=== PATIENT | female | born 1995 | race Caucasian/White ===

== ENCOUNTER 2018-03-27 17:11 | Emergency (ER) | payer BC, OTHER ==
[~2018-03-27] VITALS: Ht 167.6 cm; Wt 104.3 kg
[~2018-03-27 17:11] MED LIST: CPR500T PO; CYCL10TA9 PO; PHEN100T17 PO; SULF-222 PO; TRAM50TA2 PO
--- OUTSIDE RECORDS SUMMARY | 2018-03-27 17:16 | XMS REPORT ---
Author Author CAMILLA KHAN Organization [facility] IN [facility] Address [address] [place] [address] Care Team Providers Care Food Equipment Service Technician Name Role Phone CAMILLA KHAN Unavailable PROBLEMS Unknown Problems ALLERGIES No Known Allergies ENCOUNTERS Encounter Location Date Diagnosis [facility] [address] [facility] [id number] [address] Sep, Acute nasopharyngitis J00 IMMUNIZATIONS No Known Immunizations SOCIAL HISTORY Never Assessed REASON FOR VISIT cough et congestion for the past week. [email or web address] PLAN OF CARE Activity Details Follow Up prn Reason: VITAL SIGNS Height 67 in 2017-10-19 Weight 234.4 lbs 2017-10-19 Temperature 97.8 degrees Fahrenheit 2017-10-19 Heart Rate 80 bpm 2017-10-19 Respiratory Rate 20 2017-10-19 BMI 36.71 kg/m2 2017-10-19 Blood pressure systolic 124 mmHg 2017-10-19 Blood pressure diastolic 72 mmHg 2017-10-19 MEDICATIONS Medication Instructions Dosage Frequency Start Date End Date Duration Status Benadryl Allergy 25 MG Orally every 8 hrs 1 tablet as needed 8h Active RESULTS No Results PROCEDURES No Known procedures INSTRUCTIONS MEDICATIONS ADMINISTERED No Known Medications
--- OUTSIDE RECORDS SUMMARY | 2018-03-27 17:16 | XMS REPORT | Continuity of Care Document ---
Author Author [facility] Organization [facility] Address Unknown Phone Unavailable Allergies There is no data. Medications There is no data. Problems There is no data. Procedures There is no data. Results There is no data. Encounters ACCT No. Visit Date/Time Discharge Status Pt. Type Provider Facility Loc./Unit Complaint [id number] 01/23/2014 12:01:00 01/23/2014 12:53:00 DIS Emergency [id number] 06/02/2013 18:35:00 06/02/2013 21:16:00 DIS Emergency [id number] 09/20/2012 17:25:00 09/20/2012 23:59:59 [facility] Outpatient [id number] 10/19/2017 14:40:00 10/19/2017 23:59:59 [facility] Outpatient СВЕТЛАНА MALCOLM APRN WALK IN CARE
--- NOTE | 2018-03-27 18:35 | ED Lower Extremity ---
General Chief Complaint: Lower Extremity Stated Complaint: FELL DOWN STIARS, INJ RT FOOT Nursing Triage Note: Pt reports falling down 3 stairs at home. pt denies hitting head or loc. pt reports right foot pain 10/10 when walking and 5/10 when sitting. Nursing Sepsis Screen: No Definite Risk Source: patient, family (mother) Exam Limitations: no limitations History of Present Illness Date Seen by Provider: Mar 27, 2018 Time Seen by Provider: 18:34 Initial Comments Patient is a 23-year-old female who presents to the emergency room accompanied by her mother with complaints of right foot and ankle pain after falling down 3 stairs at home. She reports she just missed one of the top stairs and twisted her ankle ankle pain. She was able to ambulate to the exam room but ambulation causing increasing pain. She denies any other injuries from the fall such as head, neck pain, loss of consciousness. Onset: just prior to arrival Pain/Injury Location: right foot, right ankle Method of Injury: fell, twisted Modifying Factors: Worse With Movement Allergies and Home Medications Allergies Coded Allergies: latex (Verified Adverse Reaction, ITCH , 06/02/13) Home Medications Trimethoprim/Sulfamethoxazole 1 Ea Tablet, 1 EA PO BID Prescribed by: CHARLENE SYED on 01/23/14 1241 Past Mggrddh-Pclnkx-Kilone Hx Patient Social History Alcohol Use: Denies Use Recreational Drug Use: No Smoking Status: Never a Smoker Recent Foreign Travel: No Contact w/Someone Who Travel: No Recent Infectious Disease Expo: No Recent Hopitalizations: No Seasonal Allergies Seasonal Allergies: No Past Medical History Surgeries: Yes Tonsillectomy Respiratory: No Cardiac: No Neurological: No Genitourinary: No Gastrointestinal: No Musculoskeletal: No Endocrine: No HEENT: No Cancer: No Psychosocial: No Integumentary: No Blood Disorders: Yes (ANEMIA) Physical Exam Vital Signs Vital Signs - First Documented 03/27/18 17:45 Temp 98.5 Pulse 107 Resp 14 B/P (MAP) 119/74 (89) Pulse Ox 97 Capillary Refill : Less Than 3 Seconds Height, Weight, BMI Height: 5'6.00" Weight: 230lbs. oz. 104.589582cw; BMI Method:Stated Progress/Results/Core Measures Results/Orders My Orders Orders - LA GAXIOLA Foot, Right, 3 View (03/27/18 18:22) Ankle, Right, 3 Views (03/27/18 18:26) Vital Signs/I&O 03/27/18 17:45 Temp 98.5 Pulse 107 Resp 14 B/P (MAP) 119/74 (89) Pulse Ox 97 Blood Pressure Mean: 89 Departure Impression Primary Impression: Ankle sprain Disposition: 01 HOME, SELF-CARE Condition: Stable/Unchanged Departure-Patient Inst. Decision time for Depature: 19:19 Referrals: FIONA LEIVA MD (PCP/Family) Primary Care Physician Patient Instructions: Ankle Sprain (DC) Add. Discharge Instructions: Wear the air stirrup and Jarvis bandage as needed for comfort. Ice to the sore areas at 20 minute intervals. Tylenol and ibuprofen as needed for pain relief. Follow-up with her primary care provider as needed. Return back to the emergency room for any worsening symptoms or concerns as needed. All discharge instructions reviewed with patient and/or family. Voiced understanding. LA GAXIOLA Mar 27, 2018 18:35
--- NOTE | 2018-03-27 19:08 | Diagnostic Imaging Report ---
EXAM: ANKLE, RIGHT, 3 VIEWS INDICATION: Fall. Right foot and ankle pain. COMPARISON: None. FINDINGS: No fracture or malalignment. The ankle mortise and talar dome appear intact on these nonweightbearing views. Soft tissue shadows are unremarkable. IMPRESSION: Negative right ankle radiographs. Dictated by: Dictated on workstation # [id number]
--- NOTE | 2018-03-27 19:09 | Diagnostic Imaging Report ---
EXAM: FOOT, RIGHT, 3 VIEW INDICATION: Fall. Right foot and ankle pain. COMPARISON: None. FINDINGS: No fracture or malalignment. No suspicious osteoblastic or lytic lesions. Soft tissue shadows are unremarkable. IMPRESSION: Negative right foot radiographs. Dictated by: Dictated on workstation # [id number]
[2018-03-27 19:50] VITALS: BP 119/74
== END 2018-03-27 19:50 | disposition home or self-care (01) ==
LOC: EDUNIT# 17:11 → ER 17:12
DX: S93.401A Sprain of unspecified ligament of right ankle, initial encounter (principal); Z90.89 Acquired absence of other organs; Z91.040 Latex allergy status; W10.8XXA Fall (on) (from) other stairs and steps, initial encounter; Y92.009 Unspecified place in unspecified non-institutional (private) residence as the place of occurrence of the external cause
CPT/HCPCS: 73610; 73630

== ENCOUNTER 2018-10-24 05:46 | Outpatient (CLI) | payer BC ==
[~2018-10-24] VITALS: Ht 167.6 cm; Wt 104.3 kg
[2018-10-24] MEDS ORDERED: FERR-84 PO (15:56)
[2018-10-24] MEDS ORDERED: CHOL2000 PO (15:56)
== END 2018-10-24 16:12 | disposition home or self-care (01) ==
LOC: PREOP 05:46
PROVIDERS: ATTEND Obstetrics & Gynecology
DX: Z01.818 Encounter for other preprocedural examination (principal)

== ENCOUNTER 2018-10-31 08:44 | Day surgery (SDC) | payer BC ==
[~2018-10-31] VITALS: Ht 167.6 cm; Wt 108.9 kg
[2018-10-31] VITALS (10 sets, daily range): BP systolic 93–103; BP diastolic 53–67
[~2018-10-31 08:44] MED LIST changes: +CHOL2000 PO; +FERR-84 PO
--- OUTSIDE RECORDS SUMMARY | 2018-10-31 08:48 | XMS REPORT | Continuity of Care Document ---
Author Organization Unknown Address Unknown Phone Unavailable Allergies Active Description Code Type Severity Reaction Onset Reported/Identified Relationship to Patient Clinical Status Yes latex [id number] Drug Allergy Unknown ITCH 06/02/2013 Yes No Known Drug Allergies [id number] Drug Allergy Unknown N/A 10/24/2018 Medications There is no data. 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[employer] Ot 682.3 CELLULITIS OF ARM 03/27/2018 LA GAXIOLA Ot M25.571 PAIN IN RIGHT ANKLE AND JOINTS OF RIGHT 03/27/2018 LA GAXIOLA Ot S93.401A SPRAIN OF UNSPECIFIED LIGAMENT OF RIGHT 03/27/2018 LA GAXIOLA Ot W10.8XXA FALL (ON) (FROM) OTHER STAIRS AND STEPS, 03/27/2018 LA GAXIOLA Ot Y92.[address] [facility] [address] IN [facility] NON-INSTITUT (PRIVATE 03/27/2018 LA GAXIOLA Ot Z90.89 ACQUIRED ABSENCE OF OTHER ORGANS 03/27/2018 LA GAXIOLA Ot Z91.040 LATEX ALLERGY STATUS 03/29/2018 LA GAXIOLA Ot M25.571 PAIN IN RIGHT ANKLE AND JOINTS OF RIGHT 03/29/2018 LA GAXIOLA Ot S93.401A SPRAIN OF UNSPECIFIED LIGAMENT OF RIGHT 03/29/2018 LA GAXIOLA Ot W10.8XXA FALL (ON) (FROM) OTHER STAIRS AND STEPS, 03/29/2018 LA GAXIOLA Ot Y92.[address] IN [facility] NON-INSTITUT (PRIVATE 03/29/2018 LA GAXIOLA Ot Z90.89 ACQUIRED ABSENCE OF OTHER ORGANS 03/29/2018 LA GAXIOLA Ot Z91.040 LATEX ALLERGY STATUS 10/24/2018 AMY MASTERSON DO Ot Z01.818 ENCOUNTER FOR OTHER PREPROCEDURAL EXAMIN 10/25/2018 AMY MASTERSON DO Ot Z01.818 ENCOUNTER FOR OTHER PREPROCEDURAL EXAMIN Procedures There is no data. Results Test Result Range SUREPATH PAP RFX HPV mRNA E6/E7 - 06/21/18 00:00 CLINICAL INFORMATION: CERVIC NRG LMP: 05/31/2018 NRG PREV. PAP: NRG PREV. BX: NRG SOURCE: NRG STATEMENT OF ADEQUACY: NRG INTERPRETATION/RESULT: NRG COMPRESS ENGINEER: SADIA PATHOLOGIST: SADIA COMMENT NRG PATHOLOGY REPORT (TISSUE PAHOLOGY) - 06/21/18 12:07 CLINICAL INFORMATION NRG PATHOLOGIST NRG Encounters ACCT No. Visit Date/Time Discharge Status Pt. Type Provider Facility Loc./Unit Complaint [id number] 10/24/2018 05:46:00 10/24/2018 16:12:00 DIS Outpatient AMY MASTERSON DO [facility] PREOP DYSFUNCTIONAL UTERINE BLEEDING [id number] 03/27/2018 17:12:00 03/27/2018 19:50:00 DIS Emergency LA GAXIOLA [facility] ER FELL DOWN STAIRS, INJ RT FOOT [id number] 01/23/2014 12:01:00 01/23/2014 12:53:00 DIS Emergency CHARLENE SYED APRN [facility] ER ABSCESS LEFT UPPER ARM [id number] 06/02/2013 18:35:00 06/02/2013 21:16:00 DIS Emergency AKASH BARRAGAN [facility] ER LOWER BACK PAIN AND BODY ACHES [id number] 09/20/2012 17:25:00 09/20/2012 23:59:59 [facility] Outpatient [id number] 10/31/2018 10:00:00 PEN Preadmit AMY MASTERSON DO [facility] DYSFUNCTIONAL UTERINE BLEEDING [id number] 06/21/2018 09:40:00 06/21/2018 23:59:59 [facility] Outpatient СВЕТЛАНА MALCOLM APRN [facility] [id number] 06/21/2018 09:40:00 Document Registration
[2018-10-31] MEDS ORDERED: LACTATED RINGERS 1,000 ML IV PRN (09:04)
[2018-10-31 09:19] LABS: BASOPHILS % (AUTO) 0 % (0-10); EOSINOPHILS # (AUTO) 0.2 10^3/uL (0.0-0.3); EOSINOPHILS % (AUTO) 4 % (0-10); HEMATOCRIT 27 % (35-52); HEMOGLOBIN 7.9 G/DL (11.5-16.0); LYMPHOCYTES # (AUTO) 2.3 X 10^3 (1.0-4.0); LYMPHOCYTES % (AUTO) 37 % (12-44); MEAN CORPUSCULAR HEMOGLOBIN 23 PG (25-34); MEAN CORPUSCULAR HGB CONC 30 G/DL (32-36); MEAN CORPUSCULAR VOLUME 76 FL (80-99); MEAN PLATELET VOLUME 9.4 FL (7.4-10.4); MONOCYTES # (AUTO) 0.6 X 10^3 (0.0-1.0); MONOCYTES % (AUTO) 9 % (0-12); NEUTROPHILS # (AUTO) 3.1 X 10^3 (1.8-7.8); NEUTROPHILS % (AUTO) 50 % (42-75); PLATELET COUNT 518 10^3/uL (130-400); RED CELL DISTRIBUTION WIDTH 15.6 % (10.0-14.5); WHITE BLOOD COUNT 6.2 10^3/uL (4.3-11.0)
[2018-10-31] MEDS ORDERED: MIDAZOLAM 2 MG/2 ML (VERSED) VIAL ONE (09:45)
[2018-10-31] MEDS ORDERED: fentaNYL INJECTION 100 MCG/2 ML AMP ONE (09:46)
[2018-10-31] MEDS ORDERED: ONDANSETRON 4 MG/2 ML (SDV) Z0FRAN ONE (09:51)
[2018-10-31] MEDS ORDERED: proPOfol 200 MG/20 ML (DIPRIVAN) VIAL IV ONE (09:51)
[2018-10-31] MEDS ORDERED: SEVOFLURANE (ULTANE) 15 ML INHAL SOLN ONE ×2 (09:51→10:07)
[2018-10-31] MEDS ORDERED: KETOROLAC 30 MG/ML VIAL ONE ×2 (09:51→10:10)
[2018-10-31] MEDS ORDERED: LIDOCAINE PF 2% 5 ML (XYLOCAINE) VIAL ONE (09:51)
[2018-10-31] MEDS ORDERED: BUPIVACAINE 0.25% 30 ML (SENSORCAINE) VIAL ONE (09:54)
--- NOTE | 2018-10-31 09:58 | Progress Note-Pre Operative ---
Pre-Operative Progress Note H&P Reviewed The H&P was reviewed, patient examined and no changes noted. Date Seen by Provider: Oct 31, 2018 Time Seen by Provider: 09:57 Date H&P Reviewed: Oct 31, 2018 Time H&P Reviewed: 09:57 Pre-Operative Diagnosis: DUB, BMI 38 AMY MASTERSON DO Oct 31, 2018 09:58
[2018-10-31] MEDS ORDERED: DEXAMETHASONE 10 MG/ML (DECADRON) 1 ML VIAL ONE (10:13)
[2018-10-31] MEDS ORDERED: D5 LR IV SOLUTION 1,000 ML IV SCH (10:29)
[2018-10-31] MEDS ORDERED: morphine INJ 10 MG/ML 1ML (SYR OR VIAL) IVP ONE (10:30)
[2018-10-31] MEDS ORDERED: HYDROmorphone 2 MG/ML VIAL (DILAUDID) IV ONE (10:30)
[2018-10-31] MEDS ORDERED: ONDANSETRON 4 MG/2 ML (SDV) Z0FRAN IVP PRN ×2 (10:30)
[2018-10-31] MEDS ORDERED: KETOROLAC 30 MG/ML VIAL IVP ONE (10:30)
--- NOTE | 2018-10-31 10:32 | Discharge Inst-Women's Service ---
Discharge Inst-Women's Serv Depart Medication/Instructions New, Converted or Re-Newed RX: RX on Chart Problems Reviewed?: Yes Consults/Follow Up Additional Follow Up: Yes Orders/Referrals Dr. Masterson in 3-4 weeks Activity Activity: Activity as Tolerated Driving Instructions: No Driving for 1 Week NO SMOKING: NO SMOKING Nothing Inside Vagina: No [place], No Tampons Diet Discharge Diet: No Restrictions Symptoms to Report to : Bleeding Excessive, Pain Increased, Fever Over 101 Degrees F, Vaginal Bleeding Increase, Questions/Concerns For Any Problems or Questions: Contact Your Physician AMY MASTERSON DO Oct 31, 2018 10:32
[2018-10-31] MEDS ORDERED: HYDROcodone/APAP 5 MG/325 MG (LORTAB) TAB PO PRN (10:45)
[2018-10-31] MEDS ORDERED: BUPIVACAINE 0.25% 30 ML (SENSORCAINE) VIAL INJ ONE (11:00)
--- NOTE | 2018-10-31 13:02 | Anesthesia-General Post-Op ---
General Patient Condition Mental Status/LOC: Same as Preop Cardiovascular: Satisfactory Nausea/Vomiting: Absent Respiratory: Satisfactory Pain: Controlled Complications: Absent Post Op Complications Complications None Follow Up Care/Instructions Patient Instructions None needed. Anesthesia/Patient Condition Patient Condition Patient is doing well, no complaints, stable vital signs, no apparent adverse anesthesia problems. No complications reported per nursing. JAIDA TEJEDA CRNA Oct 31, 2018 13:01
--- NOTE | 2018-10-31 16:06 | OPERATIVE REPORT ---
DATE OF SERVICE: PREOPERATIVE DIAGNOSIS: A 23-year-old female with dysfunctional uterine bleeding. POSTOPERATIVE DIAGNOSIS: A 23-year-old female with dysfunctional uterine bleeding. PROCEDURE: D and C with placement of Liletta IUD. SURGEON: Amy Masterson DO. ANESTHESIA: General endotracheal. ESTIMATED BLOOD LOSS: Minimal. URINE OUTPUT: 30 mL. FLUIDS: 700 mL of lactated Ringer's solution. FINDINGS: A copious amount of thickened endometrial tissue consistent with ultrasound evaluation of thickened endometrium. Grossly normal-appearing external female genitalia, vagina and cervix. SPECIMENS SENT: Endometrial curettings. INDICATIONS FOR PROCEDURE: This 23-year-old female is the patient I have seen in the office for heavy abnormal bleeding causing anemia chronically. Her last hemoglobin was found to be less than 10. I discussed with the patient more conservative measures, which she had tried in the past; however, she wished to proceed with a more aggressive measure of a D and C due to thickened lining found on ultrasound. We also discussed preventing the lining from coming back in the thickened nature using a progestin IUD. Risks of the procedure were discussed with the patient in detail. After all of her questions were answered in the preoperative area, consent was obtained in the preoperative area and the patient was taken to the operating room. OPERATIVE REPORT IN DETAIL: Once in the operating room, anesthesia was found to be adequate. She was placed in a dorsal lithotomy position, prepped and draped in a normal sterile fashion. Timeout was performed. A weighted speculum was inserted in the patient's vagina. Right angle retractor was used to visualize the cervix, which was grasped at 12 o'clock position using a long Allis clamp. I then performed a paracervical block at 3 and 9 o'clock positions on the cervix using 0.25% Marcaine with 5 mL were injected at each site. Care was taken to aspirate before injecting. I then gently sound the uterine cavity and depth was found to be 8 cm. It did not necessitate dilation of the cervix and then I performed a gentle curetting using a medium sized endometrial curette and collected a copious amount of endometrial tissue. I sent it for pathology labeled as endometrial curettings. After this was done, I placed a Liletta IUD in the appropriate fashion sounding the cavity depth of 8 cm retracting the sheath, deploying the arm and applying it to the uterine fundus after which the sheath was retracted and the strings were trimmed approximately 3 cm outside of the cervix. After this was done, there was no active bleeding noted from any of my dissection planes. The patient tolerated the procedure well and sent to recovery area in stable condition. All the instruments were removed from the patient's vagina. Lap and sponge counts were correct at the end of the procedure. Instrument counts were correct as well. Job ID: [id number] DocumentID: [id number] Dictated Date: 10/31/2018 10:43:29 Secondary Connector Armature Date: 10/31/2018 16:05:35 Dictated By: AMY MASTERSON DO
== END 2018-10-31 13:20 | disposition home or self-care (01) ==
LOC: SDC 08:44
PROVIDERS: ATTEND Obstetrics & Gynecology
DX: N85.00 Endometrial hyperplasia, unspecified (principal); N93.9 Abnormal uterine and vaginal bleeding, unspecified; N85.5 Inversion of uterus; D64.9 Anemia, unspecified; E66.01 Morbid (severe) obesity due to excess calories; Z79.899 Other long term (current) drug therapy; Z68.37 Body mass index [BMI] 37.0-37.9, adult
CPT/HCPCS: 36415; 84703; 85025; 86850; 86900; 86901; 87081; 88305

== ENCOUNTER → 2019-11-24 | Outpatient (CLI) | payer BC ==
--- NOTE | 2019-11-24 13:27 | Diagnostic Imaging Report ---
INDICATION: Assessment during normal . TECHNIQUE: Multiple real-time grayscale images were obtained over the gravid uterus. COMPARISON: None. FINDINGS: A single viable intrauterine is currently in cephalic presentation. Normal amount of amniotic fluid. Placenta is anterior and without evidence of previa. Visualized anatomical structures including kidneys, bladder, stomach, intracranial structures, four-chamber heart, three-vessel cord, and spine appear unremarkable. The cord insertion site is not able to be well defined at this time. Cervical length is approximately 4 cm. Maternal adnexa are not visualized. Biometrical measurements are as follows: Biparietal 4.78 cm, age 20 weeks 4 days. Head circumference 17.44 cm, age 20 weeks 0 days. Abdominal circumference 14.10 cm, age 19 weeks 4 days. Femur length 3.14 cm, age 19 weeks 6 days. Sonographic estimate age: 20 weeks 0 days. Sonographic estimated date of delivery: 04/12/2020. Estimated Weight: 306 gm (+/- 45 gm). LMP percentile: 43%. heart rate: 134 beats per minute. number: 1 of 1. IMPRESSION: 1. Single viable intrauterine currently in a cephalic presentation. Sonographic estimated age 20 weeks 0 days for estimated date of delivery April 12, 2020. No abnormalities demonstrated at this time; however, the cord insert site is not able to be well identified on current study. Dictated by: Dictated on workstation # [id number]
== END ==
LOC: RAD 10:00
PROVIDERS: ATTEND Obstetrics & Gynecology
DX: Z34.92 Encounter for supervision of normal pregnancy, unspecified, second trimester (principal); Z3A.20 20 weeks gestation of pregnancy
CPT/HCPCS: 76805

== ENCOUNTER 2020-04-03 05:18 | Inpatient (IN) | payer BC, MEDICAID ==
[2020-04-03] VITALS (56 sets, daily range): BP systolic 91–175; BP diastolic 45–105
[~2020-04-03] VITALS: Ht 167.7 cm; Wt 106.8 kg
--- NOTE | 2020-04-03 05:20 | NUR ---
ATA MARADIAGA presented to unit via from ED, accompanied by debra , with c/o CONTRACTIONS. ATA MARADIAGA weighed, gowned, voided, and to bed. EFHM and TOCO applied, VS taken. ATA MARADIAGA oriented to bed controls, call light, TV, heat, and A/C controls.
--- NOTE | 2020-04-03 05:30 | NUR ---
SVE 5cm.
[2020-04-03 06:05] LABS: BILIRUBIN,URINE NEGATIVE (NEGATIVE); CLARITY,URINE SL CLOUDY; COLOR,URINE YELLOW; GLUCOSE, URINE (UA) NEGATIVE (NEGATIVE); KETONES,URINE NEGATIVE (NEGATIVE); LEUKOCYTE ESTERASE ,URINE 1+ (NEGATIVE); NITRITE,URINE NEGATIVE (NEGATIVE); PROTEIN,URINE NEGATIVE (NEGATIVE)
[2020-04-03 06:15] LABS: BACTERIA,URINE TRACE /HPF
[2020-04-03] MEDS ORDERED: D5 LR IV SOLUTION 1,000 ML IV ONE (06:35)
[2020-04-03] MEDS ORDERED: MINERAL OIL CONCENTRATE 99.9% 15 ML UDC TOP PRN (06:45)
[2020-04-03] MEDS: D5 LR IV SOLUTION 1,000 ML IV SCH ×2 (06:53→14:48)
[2020-04-03 07:28] LABS: BASOPHILS % (AUTO) 0 % (0-10); EOSINOPHILS # (AUTO) 0.1 10^3/uL (0.0-0.3); EOSINOPHILS % (AUTO) 1 % (0-10); HEMATOCRIT 31 % (35-52); HEMOGLOBIN 10.1 g/dL (11.5-16.0); LYMPHOCYTES % (AUTO) 20 % (12-44); MEAN CORPUSCULAR HEMOGLOBIN 27 pg (25-34); MEAN CORPUSCULAR HGB CONC 33 g/dL (32-36); MEAN CORPUSCULAR VOLUME 83 fL (80-99); MEAN PLATELET VOLUME 9.8 fL (9.0-12.2); MONOCYTES # (AUTO) 0.7 10^3/uL (0.0-1.0); MONOCYTES % (AUTO) 7 % (0-12); NEUTROPHILS # (AUTO) 7.3 10^3/uL (1.8-7.8); NEUTROPHILS % (AUTO) 73 % (42-75); PLATELET COUNT 353 10^3/uL (130-400); WHITE BLOOD COUNT 10.1 10^3/uL (4.3-11.0)
[2020-04-03] MEDS ORDERED: fentaNYL 2 mcg/ml BUPIVA 0.125 100 ML ONE (08:27)
--- NOTE | 2020-04-03 08:28 | NUR ---
Marlene Duarte CREDIT PRODUCT ANALYST notified of epidural request
[2020-04-03] MEDS ORDERED: fentaNYL INJECTION 100 MCG/2 ML AMP ONE (08:36)
[2020-04-03] MEDS ORDERED: BUPIVACAINE 0.25% 30 ML (SENSORCAINE) VIAL ONE (08:36)
[2020-04-03] MEDS ORDERED: OXYTOCIN PRE-MIX DRIP 500 ML IV SCH ×2 (08:45→15:30)
[2020-04-03] MEDS ORDERED: CATHETER FLUSH 10 ML SYR IV PRN (08:45)
[2020-04-03] MEDS ORDERED: LACTATED RINGERS 1,000 ML IV ONE (08:45)
[2020-04-03] MEDS ORDERED: fentaNYL 2 mcg/ml BUPIVA 0.125 100 ML IV SCH (08:45)
[2020-04-03] MEDS ORDERED: NALOXONE 0.4 MG/ML 1 ML (NARCAN) VIAL IV PRN (08:45)
[2020-04-03] MEDS ORDERED: LIDOCAINE/EPI 2% 1:200,00 (XYLOCAINE) 10 ML VIAL ONE ×2 (15:11)
--- NOTE | 2020-04-03 15:20 | History & Physical-OB ---
OB - Chief Complaint & HPI Date/Time Date of Admission: Date of Admission: Apr 03, 2020 at 06:35 Date seen by a Provider: Apr 03, 2020 Time Seen by a Provider: 08:30 Chief Complaint/History OB-Reason for Admission/Chief: Onset of Labor Hx : 2 Hx Para: 1 Expected Date of Delivery: Apr 14, 2020 Gestational Age in Weeks: 38 Gestational Age in Days: 3 Admission Nurse Assessment Rev: Yes Allergies and Home Medications Allergies Coded Allergies: No Known Drug Allergies (Unverified , 10/24/18) Home Medications Cholecalciferol (Vitamin D3) 2,000 Unit Capsule, 2,000 UNIT PO DAILY, (Reported) Ferrous Sulfate 325 Mg Tablet, 325 MG PO DAILY, (Reported) Patient Home Medication List Home Medication List Reviewed: Yes OB - History Hx of Present Care: Yes Ultrasounds: Normal mid trimester US Obstetrical Complications: None Medical Complications: None Obstetrical History Hx : 2 Hx Para: 1 Delivery History Hx Blood Disorders: Yes (ANEMIA) Adverse Rxn to Tranfusion: No Patient Past Medical History n/a Social History/Family History HIV/AIDS: No Recent Infectious Disease Expo: No Sexually Transmitted Disease: No Alcohol Use: Denies Use Recreational Drug Use: No 2nd Hand Smoke Exposure: No Immunizations Hepatitis A: Yes Hepatitis B: Yes Date of Influenza Vaccine: Feb 04, 2021 OB - Admission Exam Physical Exam Vitals: Vital Signs 04/03/20 04/03/20 04/03/20 10:20 13:35 14:05 Temp 36.7 Pulse 75 Resp 18 B/P (MAP) 117/77 (90) Pulse Ox 100 O2 Delivery Room Air HEENT: NCAT Heart: Rhythm Normal Lungs: Clear Abdomen: Gravid Extremities: Normal Reflexes: Normal Cervical Dilatation: 4cm Effacement: 75% Station: -1 Membranes: Intact Heart Rate: 130's Accelerations: Accelerations Present Decelerations: No Decelerations Short Term Variability: Present Oil Treater Variability: Average (6-25) Contractions on Admission: < 5 Minutes Apart Intensity: Firm Labs Laboratory Tests Test 04/03/20 05:20 04/03/20 07:12 04/03/20 07:35 Range/Units Urine Color YELLOW Urine Clarity SL CLOUDY Urine pH 7.0 5-9 Urine Specific [place] 1.010 L 1.016-1.022 Urine Protein NEGATIVE NEGATIVE Urine Glucose (UA) NEGATIVE NEGATIVE Urine Ketones NEGATIVE NEGATIVE Urine Nitrite NEGATIVE NEGATIVE Urine Bilirubin NEGATIVE NEGATIVE Urine Urobilinogen 0.2 < = 1.0 MG/DL Urine Leukocyte Esterase 1+ H NEGATIVE Urine RBC (Auto) NEGATIVE NEGATIVE Urine RBC NONE /HPF Urine WBC 5-10 H /HPF Urine Squamous Epithelial Cells 2-5 /HPF Urine Crystals NONE /LPF Urine Bacteria TRACE /HPF Urine Casts NONE /LPF Urine Mucus NEGATIVE /LPF Urine Culture Indicated NO White Blood Count 10.1 4.3-11.0 10^3/uL Red Blood Count 3.76 L 3.80-5.11 10^6/uL Hemoglobin 10.1 L 11.5-16.0 g/dL Hematocrit 31 L 35-52 % Mean Corpuscular Volume 83 80-99 fL Mean Corpuscular Hemoglobin 27 25-34 pg Mean Corpuscular Hemoglobin Concent 33 32-36 g/dL Red Cell Distribution Width 13.7 10.0-14.5 % Platelet Count 353 130-400 10^3/uL Mean Platelet Volume 9.8 9.0-12.2 fL Immature Granulocyte % (Auto) 0 % Neutrophils (%) (Auto) 73 42-75 % Lymphocytes (%) (Auto) 20 12-44 % Monocytes (%) (Auto) 7 0-12 % Eosinophils (%) (Auto) 1 0-10 % Basophils (%) (Auto) 0 0-10 % Neutrophils # (Auto) 7.3 1.8-7.8 10^3/uL Lymphocytes # (Auto) 2.0 1.0-4.0 10^3/uL Monocytes # (Auto) 0.7 0.0-1.0 10^3/uL Eosinophils # (Auto) 0.1 0.0-0.3 10^3/uL Basophils # (Auto) 0.0 0.0-0.1 10^3/uL Immature Granulocyte # (Auto) 0.0 0.0-0.1 10^3/uL OB - Assessment/Plan/Diagnosis Assessment Assessment: active labor Admission Dx 25 yo @ 38 weeks Active labor GBS neg Admission Status: Inpatient Order (span 2 midnights) Reason for Inpatient Admission: Active labor at term Plan Other Plan AROM, and Pitocin if labor pattern becomes dysfunction. Patient to have epidural at request. AMY MASTERSON DO Apr 03, 2020 15:20
--- NOTE | 2020-04-03 15:22 | Discharge Inst-Women's Service ---
Discharge Inst-Women's Serv Depart Medication/Instructions New, Converted or Re-Newed RX: RX on Chart Final Diagnosis PPD 1 NVD Problems Reviewed?: Yes Consults/Follow Up Additional Follow Up: Yes Orders/Referrals Dr. Masterson in 6 weeks Activity Activity: Activity as Tolerated Driving Instructions: No Driving for 1 Week NO SMOKING: NO SMOKING Nothing Inside Vagina: No Douching, No [place], No Tampons Diet Discharge Diet: No Restrictions Symptoms to Report to : Bleeding Excessive, Pain Increased, Fever Over 101 Degrees F, Vaginal Bleeding Increase, Questions/Concerns For Any Problems or Questions: Contact Your Physician AMY MASTERSON DO Apr 03, 2020 15:22
[2020-04-03] MEDS ORDERED: BENZ78AE5 TP (15:23)
[2020-04-03] MEDS ORDERED: FERR325T18 PO (15:23)
[2020-04-03] MEDS ORDERED: DCS100C PO (15:23)
[2020-04-03] MEDS ORDERED: IBUP-844 PO (15:23)
[2020-04-03] MEDS ORDERED: ACHD5005 PO (15:23)
[2020-04-03] MEDS ORDERED: WITCH HAZEL(TUCKS) 40 EA JAR TOP PRN (15:30)
[2020-04-03] MEDS ORDERED: DIBUCAINE (NUPERCAINAL) 1% OINT 30 GM TOP PRN (15:30)
[2020-04-03] MEDS ORDERED: TETANUS,DIPTH,PERTUSS P/F (BOOSTRIX) 0.5 ML VIAL IM ONE (15:30)
[2020-04-03] MEDS ORDERED: MEASLES,MUMPS,RUBELLA 1 EA INJ SQ ONE (15:30)
[2020-04-03] MEDS ORDERED: BENZOCAINE/MENTHOL (DERMOPLAST) 60 ML CAN TP PRN (15:30)
[2020-04-03] MEDS ORDERED: HYDROcodone/APAP 5 MG/325 MG (LORTAB) TAB PO PRN (15:30)
--- NOTE | 2020-04-03 16:09 | OB Labor & Delivery Record ---
L&D History Date of Service Date of Service: Apr 03, 2020 History Expected Date of Delivery: Apr 14, 2020 Gestational Age in Weeks: 38 Hx : 2 Hx Para: 1 Complications Events: Routine care Operative Indications (Cesarea: N/A-Vaginal Delivery Intrapartal Events: None L&D Stage1 Stage One Onset of Labor - Date: Apr 03, 2020 Monitors and Tracing Monitor Mode: External Heart Rate: 135 Monitor Accelerations: Uniform Monitor Decelerations: None Station: -1 Dowel Sander Operator Variability: Average (6-10) Short Term Variability: Present Presentation: Vertex Vital Signs VS - Last 72 Hours, by Label 04/03/20 04/03/20 04/03/20 04/03/20 05:34 05:45 05:46 06:20 Temp 36.6 36.6 36.6 Pulse 77 77 77 71 Resp 18 18 18 18 B/P (MAP) 108/65 (79) 106/65 (79) Pulse Ox 98 98 98 98 O2 Delivery Room Air Room Air Room Air Room Air 04/03/20 04/03/20 04/03/20 04/03/20 07:55 08:50 08:53 08:57 Temp 36.8 Pulse 70 96 79 88 Resp 18 18 18 18 B/P (MAP) 109/64 (79) 113/63 (80) 110/64 (79) 105/61 (76) Pulse Ox 100 100 100 O2 Delivery Room Air Room Air Room Air Room Air 04/03/20 04/03/20 04/03/20 04/03/20 09:01 09:04 09:06 09:10 Pulse 68 82 81 92 Resp 18 18 18 18 B/P (MAP) 101/61 (74) 103/68 (80) 106/67 (80) 109/72 (84) Pulse Ox 100 99 99 100 O2 Delivery Room Air Room Air Room Air Room Air 04/03/20 04/03/20 04/03/20 04/03/20 09:13 09:16 09:19 09:23 Pulse 78 76 94 73 Resp 18 18 18 18 B/P (MAP) 103/57 (72) 109/62 (78) 107/64 (78) 105/55 (72) Pulse Ox 100 100 100 100 O2 Delivery Room Air Room Air Room Air Room Air 04/03/20 04/03/20 04/03/20 04/03/20 09:26 09:29 09:32 09:35 Pulse 83 74 81 73 Resp 18 18 18 18 B/P (MAP) 101/62 (75) 105/51 (69) 101/45 (63) 103/59 (74) Pulse Ox 100 100 100 100 O2 Delivery Room Air Room Air Room Air Room Air 04/03/20 04/03/20 04/03/20 04/03/20 09:40 09:45 09:50 09:55 Temp 36.1 Pulse 65 85 69 66 Resp 18 18 18 18 B/P (MAP) 101/58 (72) 96/55 (69) 97/55 (69) 100/57 (71) Pulse Ox 100 100 100 100 O2 Delivery Room Air Room Air Room Air Room Air 04/03/20 04/03/20 04/03/20 04/03/20 10:00 10:05 10:10 10:15 Pulse 63 88 107 86 Resp 18 18 18 18 B/P (MAP) 103/55 (71) 99/58 (72) 91/54 (66) 95/52 (66) Pulse Ox 100 100 100 100 O2 Delivery Room Air Room Air Room Air Room Air 04/03/20 04/03/20 04/03/20 04/03/20 10:20 10:40 10:55 11:10 Temp 36.6 Pulse 66 79 62 66 Resp 18 18 18 18 B/P (MAP) 97/53 (68) 96/54 (68) 98/55 (69) 100/61 (74) Pulse Ox 100 O2 Delivery Room Air Room Air Room Air Room Air 04/03/20 04/03/20 04/03/20 04/03/20 11:35 11:50 12:20 12:35 Pulse 77 64 73 87 Resp 18 18 18 18 B/P (MAP) 107/71 (83) 113/67 (82) 119/72 (88) 128/81 (97) O2 Delivery Room Air Room Air Room Air Room Air 04/03/20 04/03/20 04/03/20 04/03/20 12:50 13:35 13:50 14:05 Temp 36.7 Pulse 81 80 77 75 Resp 18 18 18 18 B/P (MAP) 125/82 (96) 132/74 (93) 119/74 (89) 117/77 (90) O2 Delivery Room Air Room Air Room Air Room Air 04/03/20 04/03/20 04/03/20 04/03/20 14:20 14:25 14:30 14:35 Temp 36.7 Pulse 74 73 70 74 Resp 18 18 18 18 B/P (MAP) 109/47 (67) 97/53 (68) 96/53 (67) 104/70 (81) O2 Delivery Room Air Room Air Room Air Room Air 04/03/20 04/03/20 04/03/20 04/03/20 14:40 14:45 15:00 15:05 Pulse 69 86 134 88 Resp 18 18 18 18 B/P (MAP) 95/52 (66) 121/74 (90) 175/101 (125) 141/105 (117) O2 Delivery Room Air Room Air Room Air Room Air Rupture of Membranes Spontaneous Ruture of Membrane: No Amniotic Membrane Rupture Time: 0818 Amniotic Membrane Fluid Desc.: Clear Vaginal Bleeding Description: Normal Show Induction/Anesthesia Epidural Cath Placement - Time: 0855 Progress/Notes Patient admitted in active labor, AROM performed and pitocin augmentation used to max dose of 8 mu. She progressed with epidural to complete and +2 station. L&D Stage2 Stage Two Stage II Date: Apr 03, 2020 Monitors and Tracing Monitor Mode: External Heart Rate: 135 Monitor Accelerations: Uniform Monitor Decelerations: Variable Dowel Sander Operator Variability: Average (6-10) Short Term Variability: Present Position: Right Occiput Anterior Presentation: Vertex Cord Descript/Complications Cord Vessel Description: 3 Vessels Delivery Type Delivery Method: Spontaneous Vaginal Anterior Shoulder: Left Episiotomy/Perineal Laceration Laceraction(s)/Extensions: Yes Episiotomy Description: Vaginal Extension/lac, 1st degree Degree (describe repair) 1st degree vaginal and right periurethral repaired using 3-0 rapide in usual fashion. Condition of Infant Delivery 1 minute Comment: 8 5 minute Comment: 9 Notes live female infant weight 8lbs even. Condition of Condition of Infant: Living Exam: No Observed Abnormalities Resuscitation Resuscitation: N/A - Spontaneous Resp L&D Stage3 Stage Three Stage III Date: Apr 03, 2020 Pictocin Pitocin Administration mu/min: 10 Pitocin ml/hr: 10 Pitocin Administration Comment: 30 mu wide open after delviery of placenta Placenta Delivery Placenta Delivery: Spontaneous Delivery Summary Summary Estimated blood loss (mL): 350 350 Attending at delivery: Amy Masterson DO Condition of Delivery Examined: Cervix Examined, Uterus Explored Post Hemorrhage: No Condition of Mother stable Condition of Infant (s) stable AMY MASTERSON DO Apr 03, 2020 16:09
--- NOTE | 2020-04-03 18:00 | NUR ---
FFU, moderate rubra lochia noted, no clots expressed. Pt verbalizes need to void. Pericare performed. Pt assisted to standing and to wheelchair. Taken to room 310 via wheelchair by A Back along with infant, s.o. and all personal belongings. Pt assisted to bathroom, +void. Pericare performed. fresh vpad and underwear applied. pt assisted back to bed. pt and s.o. oriented to room and call light. packet explained. pt and s.o. deny questions or concerns at this time.
[2020-04-03] MEDS: IBUPROFEN 600 MG (MOTRIN) TAB PO SCH (18:25)
[2020-04-03] MEDS: DOCUSATE SODIUM 100 MG (COLACE) CAP PO SCH (21:08)
[2020-04-03] MEDS ORDERED: CATHETER FLUSH 10 ML SYR IV SCH (22:00)
[2020-04-04] MEDS: IBUPROFEN 600 MG (MOTRIN) TAB PO SCH ×4 (00:03→17:51)
[2020-04-04 01:45] VITALS: BP 131/74
[2020-04-04 06:08] VITALS: BP 102/66
[2020-04-04 06:27] LABS: BASOPHILS % (AUTO) 0 % (0-10); EOSINOPHILS # (AUTO) 0.1 10^3/uL (0.0-0.3); EOSINOPHILS % (AUTO) 1 % (0-10); HEMATOCRIT 25 % (35-52); HEMOGLOBIN 8.1 g/dL (11.5-16.0); LYMPHOCYTES # (AUTO) 2.4 10^3/uL (1.0-4.0); LYMPHOCYTES % (AUTO) 24 % (12-44); MEAN CORPUSCULAR HEMOGLOBIN 28 pg (25-34); MEAN CORPUSCULAR HGB CONC 32 g/dL (32-36); MEAN CORPUSCULAR VOLUME 85 fL (80-99); MEAN PLATELET VOLUME 10.1 fL (9.0-12.2); MONOCYTES # (AUTO) 0.7 10^3/uL (0.0-1.0); MONOCYTES % (AUTO) 7 % (0-12); NEUTROPHILS # (AUTO) 6.8 10^3/uL (1.8-7.8); NEUTROPHILS % (AUTO) 68 % (42-75); PLATELET COUNT 266 10^3/uL (130-400); WHITE BLOOD COUNT 9.9 10^3/uL (4.3-11.0)
[2020-04-04] MEDS ORDERED: FERROUS SULF 325 MG (IRON) TAB PO SCH (09:00)
[2020-04-04 09:04] VITALS: BP 124/53
[2020-04-04] MEDS: DOCUSATE SODIUM 100 MG (COLACE) CAP PO SCH (09:05)
--- NOTE | 2020-04-04 11:30 | Postpartum Progress Note ---
Note Note Day # 1 Subjective: Patient is without complaints. Ambulating, voiding. Tolerating a regular diet without nausea or vomiting. Normal lochia. Pain is well controlled with oral pain medications. Objective: Physical Exam: General - Alert and oriented, no apparent distress Abdomen - Soft, appropriately tender to palpation, non-distended, fundus firm at umbilicus Extremities - no edema, negative Ginette's bilaterally Assessment: PPD 1 NVD Acute blood loss anemia Plan: Routine care. Encourage breast feeding. Encourage ambulation. Ferrous sulfate supplementation. Plan for discharge today Vitals - Labs Vital Signs - I&O Vital Signs Date Time Temp Pulse Resp B/P (MAP) Pulse Ox O2 Delivery O2 Flow Rate FiO2 04/04/20 09:04 36.5 124/53 (76) 98 Room Air 04/04/20 06:08 36.0 74 18 102/66 (78) 100 Room Air 04/04/20 01:45 36.5 92 18 131/74 (93) 99 Room Air 04/03/20 21:47 36.2 70 20 104/75 (85) 99 Room Air 04/03/20 17:37 110 18 102/66 (78) Room Air 04/03/20 17:22 86 18 106/65 (79) Room Air 04/03/20 17:07 86 18 98/57 (71) Room Air 04/03/20 16:52 75 18 116/70 (85) Room Air 04/03/20 16:37 36.6 82 18 114/63 (80) Room Air 04/03/20 16:27 81 18 99/55 (70) Room Air 04/03/20 15:20 76 18 126/79 (95) Room Air 04/03/20 15:05 88 18 141/105 (117) Room Air 04/03/20 15:00 134 18 175/101 (125) Room Air 04/03/20 14:45 86 18 121/74 (90) Room Air 04/03/20 14:40 69 18 95/52 (66) Room Air 04/03/20 14:35 74 18 104/70 (81) Room Air 04/03/20 14:30 70 18 96/53 (67) Room Air 04/03/20 14:25 73 18 97/53 (68) Room Air 04/03/20 14:20 36.7 74 18 109/47 (67) Room Air 04/03/20 14:05 75 18 117/77 (90) Room Air 04/03/20 13:50 77 18 119/74 (89) Room Air 04/03/20 13:35 36.7 80 18 132/74 (93) Room Air 04/03/20 12:50 81 18 125/82 (96) Room Air 04/03/20 12:35 87 18 128/81 (97) Room Air 04/03/20 12:20 73 18 119/72 (88) Room Air 04/03/20 11:50 64 18 113/67 (82) Room Air 04/03/20 11:35 77 18 107/71 (83) Room Air I & O 04/04/20 07:00 Intake Total 3400 ml Balance 3400 ml Labs Laboratory Tests 04/04/20 05:57: White Blood Count 9.9, Red Blood Count 2.94L, Hemoglobin 8.1L, Hematocrit 25L, Mean Corpuscular Volume 85, Mean Corpuscular Hemoglobin 28, Mean Corpuscular Hemoglobin Concent 32, Red Cell Distribution Width 13.9, Platelet Count 266, Mean Platelet Volume 10.1, Immature Granulocyte % (Auto) 1, Neutrophils (%) (Auto) 68, Lymphocytes (%) (Auto) 24, Monocytes (%) (Auto) 7, Eosinophils (%) (Auto) 1, Basophils (%) (Auto) 0, Neutrophils # (Auto) 6.8, Lymphocytes # (Auto) 2.4, Monocytes # (Auto) 0.7, Eosinophils # (Auto) 0.1, Basophils # (Auto) 0.0, Immature Granulocyte # (Auto) 0.1 AMY MASTERSON DO Apr 04, 2020 11:30
--- NOTE | 2020-04-04 11:30 | NUR ---
Dr. Merida here to see pt. Plan for D/C this evening if is able to discharge
--- NOTE | 2020-04-04 11:45 | Anesthesia-Regional Post-Op ---
Regional Patient Condition Mental Status: Alert, Oriented x3 Circulation: Same as Pre-Op Headache: Absent Sensation: Full Recovery Motor Block: Absent Post Op Complications Complications None Follow Up Care/Instructions Patient Instructions None needed. Anesthesia/Patient Condition Patient is doing well, no complaints, stable vital signs, no apparent adverse anesthesia problems. No complications reported per nursing. D/C home per [facility] Criteria: Yes MARLENI ANGEL CRNA Apr 04, 2020 11:45
[2020-04-04 12:00] VITALS: BP 114/58
--- NOTE | 2020-04-04 17:50 | NUR ---
Discharge instructions explained to pt and copy provided to pt along with prescriptions. Pt notified of need to schedule follow up. Pt verbalizes understanding of all instructions and signs to verify. No questions or concerns voiced.
--- NOTE | 2020-04-04 18:20 | NUR ---
Pt ambulates off unit to private vehicle with all personal belongings, accompanied by RN, S.o., and . No s/s of distress noted.
== END 2020-04-04 18:20 | disposition home or self-care (01) | DRG 806 ==
LOC: WSo 05:18 → LDRP 05:19 → WSo 06:34 → LDRP 06:35
PROVIDERS: ADMIT Obstetrics & Gynecology; ATTEND Obstetrics & Gynecology
PROC: 10E0XZZ Delivery of Products of Conception, External Approach (ICD-10-PCS; principal; 2020-04-03)
PROC: 0HQ9XZZ Repair Perineum Skin, External Approach (ICD-10-PCS; 2020-04-03)
PROC: 0UQMXZZ Repair Vulva, External Approach (ICD-10-PCS; 2020-04-03)
DX: O70.0 First degree perineal laceration during delivery (principal); D62 Acute posthemorrhagic anemia; Z37.0 Single live birth; O71.82 Other specified trauma to perineum and vulva; O90.81 Anemia of the puerperium; Z3A.38 38 weeks gestation of pregnancy; Z20.822 Contact with and (suspected) exposure to COVID-19
CPT/HCPCS: 36415; 81000; 85025; 86850; 86900; 86901; 87635; 99212